=== PATIENT | male | born 1980 | race Caucasian/White ===

== ENCOUNTER 2016-12-30 17:42 | Emergency (ER) | payer MEDICAID, OTHER ==
--- NOTE | 2016-12-30 18:39 | ERNOTE ---
Neuro HPI ER Record Date of Service: 12/30/16 Time Seen by Provider: 12/30/16 18:20 Source: patient Exam Limitations: no limitations Immunizations: IMMUNIZATION HX Immunizations Up to Date Yes History of Influenza Vaccine No Hx Pneumococcal Vaccination No Allergies/Adverse Reactions: Allergies Allergy/AdvReac Type Severity Reaction Status Date / Time No Known Allergies Allergy Verified 12/30/16 17:55 Home Medications: HOME MEDICATIONS Ibuprofen [Motrin] 600 mg PO Q6H PRN 05/23/14 [Last Taken 05/23/14] Lisdexamfetamine Dimesylate [Vyvanse] 30 mg PO DAILY 05/23/14 [Last Taken ] Multivitamin [Multi Vitamin Daily] 1 each PO DAILY 05/23/14 [Last Taken 05/23/14 ] Meloxicam 7.5 mg PO DAILY #30 tablet 12/30/16 [Last Taken Unknown] levETIRAcetam [Keppra] 1,000 mg PO DAILY #30 tablet 12/30/16 [Last Taken Unknown ] - History of Present Illness Narrative: Pt. comes in with c/o two episodes of passing out and having people report that he was seizing during the episodes. Once was a week ago at a meetng where he hit his face on a table and fell to the floor and the second episode was this morning when he was running on the treadmill where he fell and hiut his face on the treadmill repeatedly. Pt. states that he has a headache now and mild photophobia and was dizzy this morning but denies any vision changes, NVD, or any current dizziness. Pt. denies any prehospital treatment other than evaluation by EMS both times. Pt. denies any hx of seizure disorders or other neurological disorders. Review of Systems - Review of Systems Constitutional: Present: no symptoms reported EYE: Present: no symptoms reported ENT: Present: no symptoms reported Respiratory: Present: no symptoms reported. Absent: shortness of breath, cough , wheezing Cardiology: Present: no symptoms reported. Absent: chest pain, palpitations, edema Gastrointestinal/Abdominal: Present: no symptoms reported. Absent: nausea, vomiting Genitourinary: Present: no symptoms reported Musculoskeletal: Present: no symptoms reported. Absent: back pain, neck pain Skin: Present: no symptoms reported. Absent: rash Neurological: Present: headache, dizziness/light-headedness, seizure. Absent: weakness, numbness All Other Systems: All systems neg except as marked - Patient's Past Medical History Patient History - Medical: Anxiety, Depression, Seizures Patient History - Cancer: No Hx of Cancer Patient History - Surgical Procedures: No surgical history - Social History Living Situations: home Psych History: Hx of Depression, Hx of Violent Behavior Smoking Status: Former smoker Alcohol Use: none Drug Use: none - Immunizations Immunizations Up to Date: Yes Hx Pneumococcal Vaccination: No History of Influenza Vaccine: No Physical Exam - Physical Exam General Appearance: Present: wd/wn, alert, no apparent distress Eye Exam: Normal inspection: bilateral, PERRL: bilateral, EOMI: bilateral Ears, Nose, Throat: Present: normal ENT inspection Neck: Present: normal inspection, nontender, supple, full range of motion. Absent: limited range of motion, tender lateral, tender posterior midline Respiratory: Present: no respiratory distress, normal breath sounds, no accessory muscle use, chest nontender Cardiovascular/Chest: Present: regular rate, rhythm, no murmur, normal peripheral pulses Gastrointestinal/Abdominal: Present: normal bowel sounds, nontender, nondistended Back Exam: Present: normal inspection, normal range of motion, no vertebral tenderness Extremity Exam: Present: normal inspection Neurological Exam: Present: alert, oriented, normal mood/affect, no motor/ sensory deficits Skin Exam: Present: other - ecchymosis R mandible, R upper eye brow, R upper lip and nose Jerica Coma Scale - Assess Eye Opening: Spontaneous Motor: Obeys Commands Verbal: Oriented - Total Coma Scale Total: 15 ED Progress - Date and Time Seen: Date and Time: 12/30/16 20:55 As we are unable to determine the cause for pt. seizures tonight I will start pt. on Keppra and stop his tramadol and switch it to meloxicam for reduction of seizure risk. Will also have him follow up with Dr Ricketts 2-3 days. If pt. unable to get appointment he will call in the am for assistance from this ED. - Results and Orders Patient's Lab Results:: I have reviewed the patient's lab results. - Vital Signs Patient's Vital Signs:: I have reviewed the patient's vital signs. Vital Signs: Vital Signs 12/30/16 17:50 Temperature 36.7 C Pulse Rate 99 Respiratory 16 Rate Blood Pressure 142/104 O2 Sat by Pulse 100 Oximetry - X-Ray X-Ray #1 X-Ray: facial bones Interpretation: Reviewed by me X-ray Comments: no acute - CT/Ultrasound CT/Ultrasound Narrative: CT head negative - Progress/Reassessment Chief Complaint: Seizure Activity Departure Clinical Impression: Seizure - Departure Disposition: Home self-care Condition: Good Instructions: Seizure, Adult, [id number] Additional Instructions: Please stop tramadol start meloxicam and keppra and follow up with Dr Joiner in 1-2 days. Referrals: Alex Joiner DO [Primary Care Provider] - Prescriptions: Meloxicam 7.5 mg PO DAILY #30 tablet levETIRAcetam [Keppra] 1,000 mg PO DAILY #30 tablet
[2016-12-30 18:43] LABS: Hematocrit 41.6 % (42.0-52.0); Hemoglobin 14.7 gm/dL (13.5-18.0); Mean Cell Volume 96.1 fl (78-100); Mean Corpuscular Hemoglobin 33.9 pg (27-31); Mean Corpuscular Hgb Conc 35.3 g/dl (32-36); Mean Platelet Volume 9.4 fl (6.0-9.5); Neutrophil # 2.5 K/mm3 (1.3-6.0); Neutrophil % 42.3 % (42-75.0); Platelet Count 236 K/mm3 (150-450); Red Blood Count 4.33 M/mm3 (4.7-6.0); Red Cell Distribution Width 11.9 % (11.5-14.0); Urine Bilirubin Negative (NEGATIVE); Urine Blood Negative /ul (NEGATIVE); Urine Ketone Negative (NEGATIVE); Urine Nitrite Negative (NEGATIVE); Urine Protein Negative (NEGATIVE); Urine Urobilinogen Normal (NORMAL); Urine pH 6.5 pH (5.0-7.0); White Blood Count 5.8 K/mm3 (4.0-10.5)
--- OUTSIDE RECORDS SUMMARY | 2016-12-30 18:55 | XMS REPORT | Continuity of Care Document ---
:1980 Author Organization [facility] ([facility]) Address [address] [place] [address] Phone [phone] Care Team Providers Name Role Phone Unavailable Primary Care Provider Unavailable Source Comments This disclosure is being made pursuant to the Care Everywhere program, applicable federal and state laws, and may not contain all informaitonavailable regarding this patient.[facility] ([facility]) Active Allergies and Adverse Reactions Not on File Current Medications Not on file Active Problems Not on file Social History Tobacco Use Types Packs/Day Years Used Date Never Assessed Plan of Care Health Maintenance Due Date Last Done Comments Hepatitis B Vaccine (1 of 3 - Primary Series) 1980 Tdap Vaccine 1989 Lipid Disorder Screening 1996 MMR Vaccine 1996 Td Vaccine 1996 Influenza Vaccine: Seasonal (#1) 05/04/2016 Results from Last 3 Months Not on file
[2016-12-30 19:01] LABS: Urine Appearance Clear; Urine Bacteria None Seen; Urine Color Yellow; Urine RBC None Seen /hpf (0-5); Urine WBC None Seen /hpf (0-5)
[2016-12-30 19:02] LABS: Cocaine Ur Negative (NEGATIVE); Urine Barbiturate Negative (NEGATIVE); Urine Benzodiazepines Negative (NEGATIVE); Urine Opiates Negative (NEGATIVE); Urine PCP Negative (NEGATIVE); Urine THC Negative (NEGATIVE)
[2016-12-30 19:05] LABS: ALT 106 U/L (19-67); AST 59 U/L (0-48); Albumin * 3.9 gm/dl (3.4-5.0); Alkaline Phosphatase * 93 U/L (50-170); Anion Gap 10.1 mmol/L (6.8-13.8); BUN/Creatinine Ratio 16.7 (9.0-21.6); Bilirubin, Total 0.5 mg/dL (0.0-1.1); Blood Urea Nitrogen 18 mg/dL (6-23); CRP 0.6 mg/dL (0.0-0.9); Ca. Corrected For Albumin 8.8 mg/dL (8.4-10.2); Carbon Dioxide 31.9 mmol/L (24-32.6); Chloride 104 mmol/L (97-106); Glucose * 81 mg/dL (70-110); Sodium 142 mmol/L (132-142); TSH * 0.871 uIU/mL (0.358-3.74); Total Protein 7.6 gm/dL (6.2-8.2)
[2016-12-30 19:28] LABS: Phosphorus 3.6 mg/dL (2.2-4.2)
[2016-12-30 21:13] VITALS: BP 129/91
== END 2016-12-30 21:11 | disposition home or self-care (01) ==
LOC: ER 17:42
DX: R56.9 Unspecified convulsions (principal); R51 Headache; R42 Dizziness and giddiness; Z87.891 Personal history of nicotine dependence
CPT/HCPCS: 36415; 70150; 70450; 80053; 80307; 81001; 83735; 84100; 84443; 85025; 85652; 86140; 99284; G0481